=== PATIENT | female | born 1960 | race Caucasian/White ===

== ENCOUNTER 2018-04-21 19:26 | Emergency (ER) | payer BC ==
[2018-04-21] MEDS ORDERED: Lidocaine 1% 10 ML MDV INJECT ONE (19:49)
[2018-04-21] MEDS ORDERED: Diphtheria,Pertussis(Acell),Tetanus Vaccine 0.5 ML Syringe IM ONE (20:01)
[2018-04-21] MEDS ORDERED: Bacitracin Oint 1 GM U/D Packet TOP ONE (20:01)
--- NOTE | 2018-04-21 20:07 | EDM.PDOC ---
ED HPI GENERAL MEDICAL PROBLEM - General Chief Complaint: Laceration Stated Complaint: LACERATION ABOVE LT EYE Time Seen by Provider: 04/21/18 19:48 - History of Present Illness INITIAL COMMENTS - FREE TEXT/NARRATIVE: Patient Name: YASIR RAMIREZ Date of : [birth year] Patient Status: Emergency Emergency Provider: Javid Concepcion Date: 04/21/18 20:01 Initialization Date: 04/21/18 20:01 ED HPI GENERAL MEDICAL PROBLEM - General Chief Complaint: Upper Extremity Injury/Pain Stated Complaint: PAIN LT SHOULDER Time Seen by Provider: 04/21/18 19:44 - History of Present Illness INITIAL COMMENTS - FREE TEXT/NARRATIVE: HISTORY AND PHYSICAL: History of present illness: Patient is 44-year-old female presents status post fall which he sustained a left facial laceration was no loss consciousness no nausea no vomiting no dizziness no neck pain or trauma no other trauma or concern Review of systems: As per history of present illness and below otherwise all systems reviewed and negative. Past medical history: As per history of present illness and as reviewed below otherwise noncontributory. Surgical history: As per history of present illness and as reviewed below otherwise noncontributory. Social history: No reported history of drug or alcohol abuse. Family history: As per history of present illness and as reviewed below otherwise noncontributory. Physical exam: HEENT: Approximately 4 cm moderate depth laceration to her left forehead no bony step-off noted fresheners good hemostasis, normocephalic, pupils reactive, negative for conjunctival pallor or scleral icterus, mucous membranes moist, throat clear, neck supple, nontender, trachea midline. Lungs: Clear to auscultation, breath sounds equal bilaterally, chest nontender. Heart: S1S2, regular, negative for clicks, rubs, or JVD. Abdomen: Soft, nondistended, nontender. Negative for masses or hepatosplenomegaly. Negative for costovertebral tenderness. Pelvis: Stable nontender. Genitourinary: Deferred. Rectal: Deferred. Extremities: Atraumatic, negative for cords or calf pain. Neurovascular unremarkable. Neuro: Awake, alert, oriented. Cranial nerves II through XII unremarkable. Cerebellum unremarkable. Motor and sensory unremarkable throughout. Exam nonfocal. Diagnostics: None Therapeutics: Tetanus update wound was anesthetized with 1% lidocaine without epinephrine irrigated with copious amounts 0.9 normal saline prepped and draped in a sterile manner and closed with 5-0 absorbable suture bacitracin was applied Impression: #1 facial laceration #2 minor head injury forehead Pain Score (Numeric/FACES): 3 - Related Data Allergies Allergy/AdvReac Type Severity Reaction Status Date / Time No Known Allergies Allergy Verified 04/21/18 19:48 Home Meds: Home Meds Gemfibrozil 1 tab PO BID 04/21/18 [History] Losartan [Cozaar] 1 tab PO DAILY 04/21/18 [History] ED ROS GENERAL - Review of Systems Review Of Systems: ROS reveals no pertinent complaints other than HPI. ED EXAM, SKIN/RASH Exam: See Below (See dictation) Course - Vital Signs Last Recorded V/S: Last Vital Signs Temp 36.6 C 04/21/18 19:26 Pulse 98 04/21/18 19:26 Resp 18 04/21/18 19:26 BP 152/81 H 04/21/18 19:26 Pulse Ox 98 04/21/18 19:26 - Orders/Labs/Meds Orders: Active Orders 24 hr Category Date Time Status Vaccines to be Administered [RC] PER UNIT ROUTINE Care 04/21/18 20:01 Active Meds: Medications Discontinued Medications Generic Name Dose Route Start Last Admin Trade Name Jean Pierre PRN Reason Stop Dose Admin Bacitracin 1 dose 04/21/18 20:01 Bacitracin Oint 1 Gm TOP 04/21/18 20:02 ONETIME ONE Diphtheria/Tetanus/Acell Pertussis 0.5 ml 04/21/18 20:01 Adacel IM 04/21/18 20:02 .ONCE ONE Lidocaine HCl Confirm 04/21/18 19:50 Xylocaine-Mpf 1% Administered 04/21/18 19:51 Dose 10 mls @ as directed .ROUTE .STK-MED ONE Lidocaine HCl 10 ml 04/21/18 19:49 04/21/18 20:03 Xylocaine 1% INJECT 04/21/18 19:50 10 ml ONETIME ONE Administration Departure - Departure Time of Disposition: 20:06 Disposition: Home, Self-Care 01 Condition: Good Clinical Impression: Head injury, Facial laceration - Discharge Information *PRESCRIPTION DRUG MONITORING PROGRAM REVIEWED*: Not Applicable *COPY OF PRESCRIPTION DRUG MONITORING REPORT IN PATIENT JULIETTE: Not Applicable Referrals: PCP,None [Primary Care Provider] - Additional Instructions: The following information is given to patients seen in the emergency department who are being discharged to home. This information is to outline your options for follow-up care. We provide all patients seen in our emergency department with a follow-up referral. The need for follow-up, as well as the timing and circumstances, are variable depending upon the specifics of your emergency department visit. If you don't have a primary care physician on staff, we will provide you with a referral. We always advise you to contact your personal physician following an emergency department visit to inform them of the circumstance of the visit and for follow-up with them and/or the need for any referrals to a consulting specialist. The emergency department will also refer you to a specialist when appropriate. This referral assures that you have the opportunity for followup care with a specialist. All of these measure are taken in an effort to provide you with optimal care, which includes your followup. Under all circumstances we always encourage you to contact your private physician who remains a resource for coordinating your care. When calling for followup care, please make the office aware that this follow-up is from your recent emergency room visit. If for any reason you are refused follow-up, please contact the [facility] emergency department at and asked to speak to the emergency department charge nurse. Follow-up primary medical doctor as needed as discussed return as needed as discussed Motrin/Tylenol as directed for pain - My Orders Last 24 Hours: My Active Orders 04/21/18 20:01 Vaccines to be Administered [RC] PER UNIT ROUTINE - Assessment/Plan Last 24 Hours: My Active Orders 04/21/18 20:01 Vaccines to be Administered [RC] PER UNIT ROUTINE
== END 2018-04-21 20:20 | disposition home or self-care (01) ==
LOC: MW.ED 19:26
DX: S01.81XA Laceration without foreign body of other part of head, initial encounter (principal); Z23 Encounter for immunization; X58.XXXA Exposure to other specified factors, initial encounter
CPT/HCPCS: 12013; 90471; 90715; 99282; 99283-25